=== PATIENT | female | born 1960 | race Caucasian/White ===

== ENCOUNTER → 2018-09-04 13:51 | Outpatient (CLI) | payer OTHER, SELFPAY ==
[2018-08-21 13:10] VITALS: BMI 36.4
--- NOTE | 2018-09-04 13:54 | BI_ITS ---
MAMMOGRAPHY - BILATERAL SCREENING REASON FOR EXAM: Female, 57 years old. Routine annual screening examination. PERTINENT HISTORY: Grandmother with breast cancer. TECHNIQUE: Digital bilateral breast ian (3D mammographic acquisition) in the CC and MLO projections. 2-D mediolateral oblique (MLO) and craniocaudad (CC) views of both breasts were obtained. CAD: Full Field Digital Mammography with Computer Added Detection was performed. COMPARISON: Comparison is made with prior study dated January 06, 2017 and June 30, 2015. FINDINGS: Breast Composition: There are scattered areas of fibroglandular density. There are no dominant masses or suspicious calcifications. No other significant abnormalities are identified. There has been no significant change since the prior study. BI/SCREENING MAMM (CAD), BILAT IMPRESSION: Stable bilateral screening mammogram. Yearly follow-up mammogram recommended. (A) ASSESSMENT CATEGORY: BIRADS Category 1: Negative. A letter regarding these results will be sent to the patient by the facility within 30 days. Approximately 10% of breast cancers are not detected by mammography. A normal mammogram should not delay biopsy of a clinically suspicious abnormality. [id number] Electronically Signed: Hermilo Sullivan, at 9:04 EDT , Service support ,
== END ==
PROVIDERS: Family Provider Family Medicine; PCP Family Medicine; Referring Provider Obstetrics & Gynecology; Visit Provider Obstetrics & Gynecology
DX: Z12.31 Encounter for screening mammogram for malignant neoplasm of breast (principal)
CPT/HCPCS: 77063; 77067

== ENCOUNTER → 2019-08-27 09:21 | Outpatient (CLI) | payer OTHER, SELFPAY ==
[2019-08-27 09:18] VITALS: BMI 36.4
--- NOTE | 2019-08-27 09:22 | RAD_ITS ---
STUDY: X-RAY - LEFT KNEE REASON FOR EXAM: Female, 58 years old. knee pain, no trauma TECHNIQUE: 4 view(s) of the knee. COMPARISON: None. FINDINGS: Normal visualized distal femur. Normal visualized proximal tibia and fibula. Normal proximal tibiofibular articulation. There is moderate degenerative arthrosis of the medial femorotibial compartment with moderate joint space narrowing. There is mild degenerative arthrosis of the lateral femorotibial compartment. There is mild degenerative arthrosis of the patellofemoral articulation. The soft tissue structures are unremarkable. RAD/Knee 4 or More Views IMPRESSION: Degenerative arthrosis. Electronically Signed: Ortega Mao MD at 8:38 EST Tel , Service support ,
== END ==
PROVIDERS: PCP Family Medicine; Referring Provider Physician Assistant; Visit Provider Physician Assistant
DX: M25.562 Pain in left knee (principal)
CPT/HCPCS: 73564

== ENCOUNTER 2019-12-19 16:21 | Emergency (ER) | payer OTHER, SELFPAY ==
[2019-11-12 08:04] VITALS: BMI 36.4
[2019-12-19 16:24] VITALS: BP 156/86; PULSE 90; RESP 18; TEMP 36.9; O2SAT 95; BMI 37.7
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
[2019-12-19 17:27] VITALS: BP 138/83; PULSE 71; RESP 14; O2SAT 97
[2019-12-19 17:30] VITALS: O2SAT 97
== END 2019-12-19 17:43 | disposition home or self-care (01) ==
PROVIDERS: Emergency Provider Emergency Medicine; PCP Family Medicine
DX: S16.1XXA Strain of muscle, fascia and tendon at neck level, initial encounter (principal); S50.871A Other superficial bite of right forearm, initial encounter; W55.01XA Bitten by cat, initial encounter; V89.2XXA Person injured in unspecified motor-vehicle accident, traffic, initial encounter; Y93.9 Activity, unspecified; Y92.9 Unspecified place or not applicable; E03.9 Hypothyroidism, unspecified; Z79.899 Other long term (current) drug therapy
CPT/HCPCS: 70450; 72125; 99282

== ENCOUNTER → 2020-09-01 08:33 | Outpatient (CLI) | payer OTHER, SELFPAY ==
[2020-03-10 08:21] VITALS: BMI 37.7
--- NOTE | 2020-09-01 08:36 | BI_ITS ---
MAMMOGRAPHY - BILATERAL SCREENING REASON FOR EXAM: Female, 59 years old. Routine annual screening examination. PERTINENT HISTORY: LINNEA GMA AGE 89 HAD BREAST CA PT CURR ON PREMRIN CR X 3.5 YRS PT LOST 6# NO PREV SX PT TOLERATES MINIMAL COMPRESSION TECHNIQUE: Digital bilateral breast pita (3D mammographic acquisition) in the CC and MLO projections. 2-D mediolateral oblique (MLO) and craniocaudad (CC) views of both breasts were obtained. CAD: Full Field Digital Mammography with Computer Added Detection was performed. COMPARISON: 09/04/2018 and 12/07/2016 FINDINGS: Breast Composition: The breasts are almost entirely fatty. There are no dominant masses or suspicious calcifications. No other significant abnormalities are identified. BI/SCRN MAMM (CAD)W/PITA BILAT IMPRESSION: Stable bilateral screening mammogram. Yearly follow-up mammogram recommended. (A) ASSESSMENT CATEGORY: BIRADS Category 2: Benign. A letter regarding these results will be sent to the patient by the facility within 30 days. Approximately 10% of breast cancers are not detected by mammography. A normal mammogram should not delay biopsy of a clinically suspicious abnormality. [id number] Electronically Signed: Kaity Moy MD at 15:26 EST Tel , Service support ,
== END ==
PROVIDERS: PCP Family Medicine; Referring Provider Family Medicine; Visit Provider Family Medicine
DX: Z12.31 Encounter for screening mammogram for malignant neoplasm of breast (principal)
CPT/HCPCS: 77063; 77067

== ENCOUNTER → 2021-10-22 | Outpatient (CLI) | payer BC, SELFPAY ==
--- NOTE | 2021-10-22 13:01 | BI_ITS ---
MAMMOGRAPHY - BILATERAL SCREENING REASON FOR EXAM: Female, 61 years old. Routine annual screening examination. PERTINENT HISTORY: Grandmother with breast cancer. TECHNIQUE: Digital bilateral breast pita (3D mammographic acquisition) in the CC and MLO projections. 2-D mediolateral oblique (MLO) and craniocaudad (CC) views of both breasts were obtained. CAD: Full Field Digital Mammography with Computer Added Detection was performed. COMPARISON: Comparison is made with prior study dated 09/01/2020 and 09/04/2018. FINDINGS: Breast Composition: There are scattered areas of fibroglandular density. There are no dominant masses or suspicious calcifications. No other significant abnormalities are identified. There has been no significant change since the prior study. BI/SCRN MAMM (CAD)W/PITA BILAT IMPRESSION: Stable bilateral screening mammogram. Yearly follow-up mammogram recommended. (A) ASSESSMENT CATEGORY: BIRADS Category 1: Negative. A letter regarding these results will be sent to the patient by the facility within 30 days. Approximately 10% of breast cancers are not detected by mammography. A normal mammogram should not delay biopsy of a clinically suspicious abnormality. [id number] Electronically Signed: Hermilo Sullivan MD at 14:03 EDT ,
== END | disposition home or self-care (01) ==
LOC: OPBI 12:59
PROVIDERS: PCP Family Medicine; Visit Provider Family Medicine
DX: Z12.31 Encounter for screening mammogram for malignant neoplasm of breast (principal)
CPT/HCPCS: 77063; 77067

== ENCOUNTER → 2022-12-06 | Outpatient (CLI) | payer BC, SELFPAY ==
--- NOTE | 2022-12-06 10:05 | BI_ITS ---
MAMMOGRAPHY - BILATERAL SCREENING REASON FOR EXAM: Female, 62 years old. Routine annual screening examination. PERTINENT HISTORY: Grandmother with breast cancer. TECHNIQUE: Digital bilateral breast pita (3D mammographic acquisition) in the CC and MLO projections. 2-D mediolateral oblique (MLO) and craniocaudad (CC) views of both breasts were obtained. CAD: Full Field Digital Mammography with Computer Added Detection was performed. COMPARISON: Comparison is made with prior study October 22, 2021 and September 01, 2020. FINDINGS: Breast Composition: There are scattered areas of fibroglandular density. There are no dominant masses or suspicious calcifications. No other significant abnormalities are identified. There has been no significant change since the prior study. BI/SCRN MAMM (CAD)W/PITA BILAT IMPRESSION: Stable bilateral screening mammogram. Yearly follow-up mammogram recommended. (A) ASSESSMENT CATEGORY: BIRADS Category 1: Negative. A letter regarding these results will be sent to the patient by the facility within 30 days. Approximately 10% of breast cancers are not detected by mammography. A normal mammogram should not delay biopsy of a clinically suspicious abnormality. [id number] Electronically Signed: Hermilo Sullivan MD at 13:34 EDT ,
== END | disposition home or self-care (01) ==
LOC: OPBI 10:03
PROVIDERS: PCP Family Medicine; Referring Provider Family Medicine; Visit Provider Family Medicine
DX: Z12.31 Encounter for screening mammogram for malignant neoplasm of breast (principal); Z80.3 Family history of malignant neoplasm of breast
CPT/HCPCS: 77063; 77067

== ENCOUNTER 2023-09-26 13:30 | Outpatient (RCR) | payer BC, SELFPAY ==
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
== END 2023-09-26 19:00 | disposition home or self-care (01) ==
LOC: PT 13:30
PROVIDERS: PCP Family Medicine; Referring Provider Orthopaedic Surgery; Visit Provider Orthopaedic Surgery
DX: M17.12 Unilateral primary osteoarthritis, left knee (principal)
CPT/HCPCS: 97110; 97113; 97116; 97162

== ENCOUNTER 2024-01-11 11:30 | Outpatient (RCR) | payer BC, SELFPAY ==
--- NOTE | 2023-11-11 17:04 | HP.PTEVAL ---
Patient's Visit Information Visit Information Visit Information: BLAKE CHUA is a 63 year old F referred to Physical Therapy by LIVAN JEFF with a diagnosis of PRIMARY OSTEOARHTRITIS OF LEFT KNEE. Date of Evaluation: 11/11/23 Physical Therapist: Behzad Monroe, PT, Cert MDT, OCS Visit Plan Frequency: 1x/Week Duration: 6 Weeks Plan: S/P TKA ON October WBAT WITH FWW PT INTERVENTIONS AROM/PROM KNEE ,FLEXABILITY LLE ,STRENGTHENING QUADS/HAMS/HIP ,GAIT / BALANCE TRAINING ,FUNCTIONAL STRENGTHENING AND VASO/CP Subjective Subjective: This 63 y/o female presents to physical therapy with left TKA on November 03 at [facility] done Dr Moore and D/C November 04 . Patient noticed some drainage before D/C DR place wound Vac Prevena . Patient d/c with fww and medication oxycodone. Patient called okay to remove wound vac. Patient has SOFTWARE SUPPORT ANALYST -RN to assist 6 hrs /day. RTD October. Patient had pain many years prior to surgery. Patient has prior Prehab at PT in [place]. Patient has edema and some pain with walking.Patient lives 1 story home with 2 steps with rails and cane. Patient has walk in shower with shower seat. Patient sleeping good . Denies paresthesia/tingling. Patient is able to dress self SOFTWARE SUPPORT ANALYST does cooking. Patient condition affects QOL and function walking and housework tasks. Patient goals to return to prior level of function. SOCIAL: VOCATION: retired Pain Left Knee: Pain Intensity (Out of 10): 4 Pain Intensity Range: 10 Objective Objective: POSTURE: mild forward posture hips/knees slightly flexed INCISION:well approximated wound vac intac prevena no drainage NEURO: denies paresthesia/tingling GAIT: ambulates with fww mild decrease stance time and swing phase during gait pattern GIRTH MEASUREMENTS: 46.5 GIRTH 6 SUPRAPATELLAR: 56.8 AROM: 8-70 degrees supine flexion MMT( peak force) quads 21.1 ,hamstrings 14.7 STAIRS: one step at time with rail Balance/Special Test Scores Lower Extremity Functional Score: 26 Goals Goal 1:: Patient to ambulate with/without cane with improve gait normal gait pattern community distances Goal Time Frame: 6-8 Weeks Goal 2:: Patient to improve LFES score by 10 points or > to improve QOL Goal Time Frame: 6-8 Weeks Goal 3:: Patient to improve peak force of quads/hams by 10-15# strength to improve gait Goal Time Frame: 6-8 Weeks Goal 4:: Patient to improve WOMAC score by 15-20 points to improve gait and function Goal Time Frame: 6-8 Weeks Goal 5:: Patient to improve AROM knee flexion 0-110 to improver stairs Goal Time Frame: 6-8 Weeks Goal 6:: Patient to improve Tug score less than15 seconds Goal Time Frame: 6-8 Weeks Rehabilitation Potential Physical Therapy Diagnosis: This patient under wentv s/p TKA left with decrease ROM ,strength ,gait ,weakness ,edema impairs gait and balance thus benefit from skilled PT to address these impairments Rehabilitation Potential: Good Anticipated Interventions Patient/Client Instruction: Educate patient on: Condition and Plan of Care For the Purpose of:: To decrease pain, To decrease swelling/inflammation, To increase ROM, To improve nutrient delivery to tissue, To increase oxygenation perfusion, To improve muscle performance and motor function, To improve ability of physical actions for home/community/work/leisure, To improve gait and locomotor functions, To improve health of tissue, To decrease soft tissue restriction and To increase flexibility/ROM Therapeutic Exercise to Include: Strength training, Endurance training, Balance training, Flexibilty training, Gait and locomotor training, Passive ROM and Active ROM For the Purpose of:: To decrease pain, To increase ROM, To improve muscle performance and motor function, To improve ability to perform ADL's, To increase tolerance to activity/condition/position, To improve ability of physical actions for home/community/work/leisure, To improve gait and locomotor functions, To improve health of tissue, To decrease soft tissue restriction, To increase flexibility/ROM, To improve balance and To improve tolerance to ADL's Cryotherapy (ice pack, ice massage): Yes Vasopneumatic device: Yes For the Purpose of:: To decrease pain, To increase ROM, To improve nutrient delivery to tissue, To increase oxygenation perfusion, To improve health of tissue and To decrease soft tissue restriction Text: Thank you for the opportunity to evaluate your patient. For Medicare and Medicare HMO plans, please review the plan of care and approve it. It will need to be FAXED BACK to us at [phone] for Medicare purposes. For Medicare only, by signing this I certify the plan of care. Please let me know if there are questions or concerns regarding this plan of care. Physician Signature: Date:
--- NOTE | 2023-11-11 18:47 | HP.PTEVAL ---
Patient's Visit Information Visit Information Visit Information: BLAKE CHUA is a 63 year old F referred to Physical Therapy by LIVAN JEFF with a diagnosis of PRIMARY OSTEOARHTRITIS OF LEFT KNEE. Date of Evaluation: 11/11/23 Physical Therapist: Behzad Monroe, PT, Cert MDT, OCS Visit Plan Frequency: 2x /Week Duration: 6 Weeks Plan: S/P TKA ON October WBAT WITH FWW PT INTERVENTIONS AROM/PROM KNEE ,FLEXABILITY LLE ,STRENGTHENING QUADS/HAMS/HIP ,GAIT / BALANCE TRAINING ,FUNCTIONAL STRENGTHENING AND VASO/CP Subjective Subjective: This 63 y/o female presents to physical therapy with left TKA on November 03 at [facility] done Dr Moore and D/C November 04 . Patient noticed some drainage before D/C DR place wound Vac Prevena . Patient d/c with fww and medication oxycodone. Patient called okay to remove wound vac. Patient has CABLE TECHNICIAN -RN to assist 6 hrs /day. RTD October. Patient had pain many years prior to surgery. [facility] Patient has edema and some pain with walking.Patient lives 1 story home with 2 steps with rails and cane. Patient has walk in shower with shower seat. Patient sleeping good . Denies paresthesia/tingling. Patient is able to dress self CABLE TECHNICIAN does cooking. Patient condition affects QOL and function walking and housework tasks. Patient goals to return to prior level of function. SOCIAL: VOCATION: retired Pain Left Knee: Pain Intensity (Out of 10): 4 Pain Intensity Range: 10 Objective Objective: POSTURE: mild forward posture hips/knees slightly flexed INCISION:well approximated wound vac intac prevena no drainage NEURO: denies paresthesia/tingling GAIT: ambulates with fww mild decrease stance time and swing phase during gait pattern GIRTH MEASUREMENTS: 46.5 GIRTH 6 SUPRAPATELLAR: 56.8 AROM: 8-70 degrees supine flexion MMT( peak force) quads 21.1 ,hamstrings 14.7 STAIRS: one step at time with rail Balance/Special Test Scores Lower Extremity Functional Score: 26 WOMAC Total Score: 51 WOMAC Percentatge: 46.8800 Goals Goal 1:: Patient to ambulate with/without cane with improve gait normal gait pattern community distances Goal Time Frame: 6-8 Weeks Goal 2:: Patient to improve LFES score by 10 points or > to improve QOL Goal Time Frame: 6-8 Weeks Goal 3:: Patient to improve peak force of quads/hams by 10-15# strength to improve gait Goal Time Frame: 6-8 Weeks Goal 4:: Patient to improve WOMAC score by 15-20 points to improve gait and function Goal Time Frame: 6-8 Weeks Goal 5:: Patient to improve AROM knee flexion 0-110 [address] improver stairs Goal Time Frame: 6-8 Weeks Goal 6:: Patient to improve Tug score less than15 seconds Goal Time Frame: 6-8 Weeks Rehabilitation Potential Physical Therapy Diagnosis: This patient under wentv s/p TKA left with decrease ROM ,strength ,gait ,weakness ,edema impairs gait and balance thus benefit from skilled PT to address these impairments Rehabilitation Potential: Good Anticipated Interventions Patient/Client Instruction: Educate patient on: Condition and Plan of Care For the Purpose of:: To decrease pain, To decrease swelling/inflammation, To increase ROM, To improve nutrient delivery to tissue, To increase oxygenation perfusion, To improve muscle performance and motor function, To improve ability of physical actions for home/community/work/leisure, To improve gait and locomotor functions, To improve health of tissue, To decrease soft tissue restriction and To increase flexibility/ROM Therapeutic Exercise to Include: Strength training, Endurance training, Balance training, Flexibilty training, Gait and locomotor training, Passive ROM and Active ROM For the Purpose of:: To decrease pain, To increase ROM, To improve muscle performance and motor function, To improve ability to perform ADL's, To increase tolerance to activity/condition/position, To improve ability of physical actions for home/community/work/leisure, To improve gait and locomotor functions, To improve health of tissue, To decrease soft tissue restriction, To increase flexibility/ROM, To improve balance and To improve tolerance to ADL's Cryotherapy (ice pack, ice massage): Yes Vasopneumatic device: Yes For the Purpose of:: To decrease pain, To increase ROM, To improve nutrient delivery to tissue, To increase oxygenation perfusion, To improve health of tissue and To decrease soft tissue restriction Text: Thank you for the opportunity to evaluate your patient. For Medicare and Medicare HMO plans, please review the plan of care and approve it. It will need to be FAXED BACK to us at [phone] for Medicare purposes. For Medicare only, by signing this I certify the plan of care. Please let me know if there are questions or concerns regarding this plan of care. Physician Signature: Date:
--- NOTE | 2023-12-26 14:25 | HP.PTREVAL ---
Re-Evaluation Intro: LIVAN JEFF, It has been my pleasure to treat BLAKE CHUA over the last 13 visits for PRIMARY OSTEOARHTRITIS OF LEFT KNEE. Please see the progress note below for an update on the physical therapy plan of care! Subjective Subjective: Pt. reports having a little bit more pain today as she has is trying to wean from oxy meds. Taking OTC meds. Objective Objective/Function: ROM: AROM: 0-3-101deg. PROM 0-0-105deg. Pt. has pain as limiting factor. She has a leather end feel, but not a firm block. Pt. ambulates well, lacks TKE during stance phase, but normal swing phase. MMT: Pt. has decent strength between BLEs. STAIRS: ascending: normal with use of 2 HR, descending increased pain noted during loading phase with early heel off. I still want her to focus on ROM. She is doing well, but with a bit more extension and flexion I believe her pain would drastically reduce allowing for increased tolerance with all functional mobility. Plan Plan Plan: Cont. to focus on knee flexion and extension ROM. I feel this will help her tolerance with all activities. She is about 5-10deg off in both directions. I had her stay away from step downs for a few days to see if this calms her symptoms allowing for increased tolerance with stretching. Resume again in a few days. Balance/Gait/Functional tests Balance/Special Test Scores Lower Extremity Functional Score: 40 TUG Test Time Seconds: 12.3 Tug Test: <20 sec.=mostly independent WOMAC Total Score: 51 WOMAC Percentage: 46.8800 Goals Goals Goal 1:: Patient to ambulate with/without cane with improve gait normal gait pattern community distances Goal Time Frame: 6-8 Weeks Goal Progress: Progressing Goal 2:: Patient to improve LFES score by 10 points or > to improve QOL Goal Time Frame: 6-8 Weeks Goal Progress: Progressing Goal 3:: Patient to improve peak force of quads/hams by 10-15# strength to improve gait Goal Time Frame: 6-8 Weeks Goal Progress: Progressing Goal 4:: Patient to improve WOMAC score by 15-20 points to improve gait and function Goal Time Frame: 6-8 Weeks Goal Progress: Progressing Goal 5:: Patient to improve AROM knee flexion 0-110 [address] improver stairs Goal Time Frame: 6-8 Weeks Goal Progress: Progressing Goal 6:: Patient to improve Tug score less than15 seconds Goal Time Frame: 6-8 Weeks Goal Progress: Progressing Anticipated Interventions Anticipated Interventions Patient/Client Instruction: Educate patient on: Condition and Plan of Care For the Purpose of:: To decrease pain, To decrease swelling/inflammation, To increase ROM, To improve nutrient delivery to tissue, To increase oxygenation perfusion, To improve muscle performance and motor function, To improve ability of physical actions for home/community/work/leisure, To improve gait and locomotor functions, To improve health of tissue, To decrease soft tissue restriction and To increase flexibility/ROM Therapeutic Exercise to Include: Strength training, Endurance training, Balance training, Flexibilty training, Gait and locomotor training, Passive ROM and Active ROM For the Purpose of:: To decrease pain, To increase ROM, To improve muscle performance and motor function, To improve ability to perform ADL's, To increase tolerance to activity/condition/position, To improve ability of physical actions for home/community/work/leisure, To improve gait and locomotor functions, To improve health of tissue, To decrease soft tissue restriction, To increase flexibility/ROM, To improve balance and To improve tolerance to ADL's Cryotherapy (ice pack, ice massage): Yes Vasopneumatic device: Yes For the Purpose of:: To decrease pain, To increase ROM, To improve nutrient delivery to tissue, To increase oxygenation perfusion, To improve health of tissue and To decrease soft tissue restriction Re-Evaluation Ending Re-evaluation ending: Please do not hesitate to contact me at [phone] by phone or if you have questions or concerns regarding this new plan of care! Sincerely, Pratik Hays DPT
--- NOTE | 2024-02-01 10:06 | HP.PT.NRP ---
Patient Information Patient Information: BLAKE CHUA was seen in my office for initial evaluation on 11/11/23. The following Plan of Care was established for this patient: POC Established Initial Frequency: 2x /Week Initial Duration: 6 Weeks Anticipated Interventions Patient/Client Instruction: Educate patient on: Condition and Plan of Care For the Purpose of:: To decrease pain, To decrease swelling/inflammation, To increase ROM, To improve nutrient delivery to tissue, To increase oxygenation perfusion, To improve muscle performance and motor function, To improve ability of physical actions for home/community/work/leisure, To improve gait and locomotor functions, To improve health of tissue, To decrease soft tissue restriction and To increase flexibility/ROM Therapeutic Exercise to Include: Strength training, Endurance training, Balance training, Flexibilty training, Gait and locomotor training, Passive ROM and Active ROM For the Purpose of:: To decrease pain, To increase ROM, To improve muscle performance and motor function, To improve ability to perform ADL's, To increase tolerance to activity/condition/position, To improve ability of physical actions for home/community/work/leisure, To improve gait and locomotor functions, To improve health of tissue, To decrease soft tissue restriction, To increase flexibility/ROM, To improve balance and To improve tolerance to ADL's Cryotherapy (ice pack, ice massage): Yes Vasopneumatic device: Yes For the Purpose of:: To decrease pain, To increase ROM, To improve nutrient delivery to tissue, To increase oxygenation perfusion, To improve health of tissue and To decrease soft tissue restriction Last Seen Last Seen: This patient was last seen in our office 01/24/24. Pertinent comments regarding their Physical therapy will appear below: Pt. called today to cancel the rest of her appt. saying she is doing well. Pt. will be DC from PT this date. At this point I will be discontinuing this patient from physical therapy. I would be happy to see this patient again in the future if found appropriate by the physician. Thank you! Pratik Hays DPT Balance/Gait/Functional tests Balance/Special Test Scores Lower Extremity Functional Score: 40 TUG Test Time Seconds: 12.3 Tug Test: <20 sec.=mostly independent WOMAC Total Score: 51 WOMAC Percentage: 46.8800
== END 2024-01-11 19:00 | disposition home or self-care (01) ==
LOC: PT 11:30
PROVIDERS: PCP Family Medicine
DX: M17.12 Unilateral primary osteoarthritis, left knee (principal)
CPT/HCPCS: 97016; 97110; 97162; 97530

== ENCOUNTER → 2024-03-30 | Outpatient (CLI) | payer BC, SELFPAY ==
--- NOTE | 2024-03-30 12:04 | BI_ITS ---
MAMMOGRAPHY - BILATERAL SCREENING REASON FOR EXAM: Female, 63 years old. Routine annual screening examination. PERTINENT HISTORY: Grandmother with breast cancer. TECHNIQUE: Digital bilateral breast pita (3D mammographic acquisition) in the CC and MLO projections. 2-D mediolateral oblique (MLO) and craniocaudad (CC) views of both breasts were obtained. CAD: Full Field Digital Mammography with Computer Added Detection was performed. COMPARISON: Comparison is made with prior study dated December 06, 2022 and October 14, 2021. FINDINGS: Breast Composition: There are scattered areas of fibroglandular density. There are no dominant masses or suspicious calcifications. No other significant abnormalities are identified. There has been no significant change since the prior study. BI/SCRN MAMM (CAD)W/PITA BILAT IMPRESSION: Stable bilateral screening mammogram. Yearly follow-up mammogram recommended. (A) ASSESSMENT CATEGORY: BIRADS Category 1: Negative. A letter regarding these results will be sent to the patient by the facility within 30 days. Approximately 10% of breast cancers are not detected by mammography. A normal mammogram should not delay biopsy of a clinically suspicious abnormality. [id number] Electronically Signed: Hermilo Sullivan MD at 12:48 EDT ,
== END | disposition home or self-care (01) ==
PROVIDERS: PCP Family Medicine; Referring Provider Family Medicine; Visit Provider Family Medicine
DX: Z12.31 Encounter for screening mammogram for malignant neoplasm of breast (principal); Z80.3 Family history of malignant neoplasm of breast
CPT/HCPCS: 77063; 77067

== ENCOUNTER 2024-04-26 12:30 | Outpatient (RCR) | payer BC, SELFPAY ==
--- NOTE | 2024-03-28 07:58 | HP.PTEVAL_ITS ---
Patient's Visit Information Visit Information Visit Information: BLAKE CHUA is a 63 year old F referred to Physical Therapy by Tori Dumont PA-C with a diagnosis of L leg weakness. Date of Evaluation: 03/27/24 Physical Therapist: Kuldeep May, PT, ATC Visit Plan Frequency: 2x /Week Duration: 4 Weeks Plan: gait training, stair negotiation, LE strengthening and mobility, balance training, core strengthening Subjective Subjective: Pt reports she had a L knee replacement 11/04/23 and was completing therapy here; states she then hurt her back and canceled the rest of her therapy appts due to having pain when walking. Pt reports she still has LBP, is more of a burning sensation; states she has been doing exercises to strengthen her back and has noticed that it's helped with the pain. Pt reports she now has R hip and knee pain due to her walking weird. States her has noticed her gait has gone back to the way it was post knee replacement. Pt reports difficulties with ambulating and descending stairs; states her has a stairs to get to the second floor on her house, uses a reciprocal pattern when ascending stairs and a two- step pattern with holding onto the handrail when descending stairs. Pt reports she would like to be confident with doing stairs and being able to ambulate without a limp. No x-rays or MRIs on R knee. Pt reports wearing a compression sleeve on the R knee and icing helps to alleviate her pain. No numbness or tingling going down bilat LEs, feels like her muscles tense up at night affecting her sleep. Pt reports pain 0/10 sitting at rest and 4-5/10 at its worst. Pain R knee: Pain Intensity (Out of 10): 0 Pain Intensity Range: 5 Objective Objective: NEURO: sensation WNL bilat to light touch; DTR patellar and achilles 1/3 hypo reflexive ROM: L knee flex= 80 deg, ext= 5 deg ; R knee flex= 109 deg, ext= 9 deg MMT: L knee flex= 11, ext= 18; R knee flex=25 ,ext= 19 #F Gait: antalgic gait pattern secondary to L knee weakness TU.86 sec Stairs: Reciprocal pattern without holding handrail when ascending; two-step pattern with holding one handrail when descending Balance/Special Test Scores Lower Extremity Functional Score: 46 Goals Goal 1:: Pt will be I with HEP. Goal Time Frame: 4-6 Weeks Goal 2:: Pt will decrease pain by 50% to aid with sleep. Goal Time Frame: 4-6 Weeks Goal 3:: Pt will be able to negotiate stairs with a reciprocal pattern. Goal Time Frame: 4-6 Weeks Goal 4:: Pt will restore normal knee ROM to aid ambulation. Goal Time Frame: 4-6 Weeks Rehabilitation Potential Physical Therapy Diagnosis: Decreased strength and ROM, limitations with negotiating stairs, difficulty with gait Rehabilitation Potential: Good Anticipated Interventions Patient/Client Instruction: Educate patient on: Plan of Care Therapeutic Exercise to Include: Strength training, Balance training, Body mechanics, Flexibilty training and Dynamic Lumbar Stabilization For the Purpose of:: To decrease pain, To increase ROM, To improve muscle performance and motor function, To increase tolerance to activity/condition/position and To improve gait and locomotor functions Text: Thank you for the opportunity to evaluate your patient. For Medicare and Medicare HMO plans, please review the plan of care and approve it. It will need to be FAXED BACK to us at [phone] for Medicare purposes. For Medicare only, by signing this I certify the plan of care. Please let me know if there are questions or concerns regarding this plan of care. Physician Signature: Date:
--- NOTE | 2024-04-26 12:50 | HP.PTDCNRP_ITS ---
Patient Information Patient Information: BLAKE CHUA was seen in my office for initial evaluation on 03/27/24. The following Plan of Care was established for this patient: POC Established Initial Frequency: 2x /Week Initial Duration: 4 Weeks Anticipated Interventions Patient/Client Instruction: Educate patient on: Plan of Care Therapeutic Exercise to Include: Strength training, Balance training, Body mechanics, Flexibilty training and Dynamic Lumbar Stabilization For the Purpose of:: To decrease pain, To increase ROM, To improve muscle per formance and motor function, To increase tolerance to activity/condition/position and To improve gait and locomotor functions Last Seen Last Seen: This patient was last seen in our office . Pertinent comments regarding their Physical therapy will appear below: Pt returned today reporting she is I with HEP and needs no further PT. At this point I will be discontinuing this patient from physical therapy. I would be happy to see this patient again in the future if found appropriate by the physician. Thank you! Kuldeep May, PT, ATC Balance/Gait/Functional tests Balance/Special Test Scores Lower Extremity Functional Score: 46
== END 2024-04-26 19:00 | disposition home or self-care (01) ==
LOC: PT 12:30
PROVIDERS: PCP Family Medicine; Referring Provider Family Medicine; Visit Provider Family Medicine
DX: R29.898 Other symptoms and signs involving the musculoskeletal system (principal); R26.9 Unspecified abnormalities of gait and mobility; Z96.652 Presence of left artificial knee joint
CPT/HCPCS: 97110; 97161

== ENCOUNTER → 2025-04-09 | Outpatient (CLI) | payer OTHER, SELFPAY ==
--- NOTE | 2025-04-09 12:20 | BI_ITS ---
EXAM: SCRN MAMM (CAD)W/PITA BILAT DATE: 04/09/2025 CLINICAL HISTORY: F, Age 64 y/o , SCREENING Grandmother with breast cancer. TECHNIQUE: Procedure Code: [id number] Modality: MG Procedure: SCRN MAMM (CAD)W/PITA BILAT COMPARISON: Prior exam(s) dated December 06, 2022.. FINDINGS: TISSUE DENSITY: There are scattered areas of fibroglandular density. Bilateral Breast Mammographic Findings: No significant masses, calcifications or other abnormalities are identified. No suspicious masses, areas of developing architectural distortion, or suspicious calcifications. There has been no significant interval change. BI/SCRN MAMM (CAD)W/PITA BILAT IMPRESSION: Stable bilateral screening mammogram. OVERALL FINAL ASSESSMENT BI-RADS 1: NEGATIVE. RECOMMENDATION: Routine annual follow-up in 1 Year Additional Recommendation none A letter with findings and recommendations will be mailed to the patient. Reading Location: [place] [address]
== END | disposition home or self-care (01) ==
LOC: OPBI 12:19
PROVIDERS: PCP Family Medicine; Referring Provider Family Medicine; Visit Provider Family Medicine
DX: Z12.31 Encounter for screening mammogram for malignant neoplasm of breast (principal); Z80.3 Family history of malignant neoplasm of breast
CPT/HCPCS: 77063; 77067